=== PATIENT | female | born 1955 | race Caucasian/White ===

== ENCOUNTER 2017-03-27 11:27 | Emergency (ER) | payer MEDICAID ==
[~2017-03-27] VITALS: Ht 152.4 cm; Wt 77.3 kg
[~2017-03-27 11:27] MED LIST: ALBU8.5H8 IH; ASPI-556 PO; ATOR40TA28 PO; BUME2TAB18 PO; CARV12 PO; FERR-89 PO; HUM10VIA SQ; HYDR100T28 PO; ISOS60TA4 PO; NITR0.4T SL; PARO20TA24 PO; PRED10TA3 PO; VITAD1000 PO
[2017-03-27 12:04] LABS: GLUCOSE COMMENT 1 Doctor Notified; GLUCOSE,POINT OF CARE 404 MG/DL (70-110)
[2017-03-27 12:21] LABS: CALCIUM, TOTAL 8.5 mg/dL (8.8-10.5); CREATININE 4.94 mg/dL (0.60-1.30); POTASSIUM 3.6 mmol/L (3.5-5.1)
[2017-03-27 12:29] LABS: TOTAL PROTEIN, SERUM 6.9 g/dL (6.4-8.2)
[2017-03-27 12:33] LABS: BASOPHILS % (AUTO) 0.4 % (0.0-2.0); EOSINOPHILS % (AUTO) 0 % (1.0-6.0); HEMATOCRIT 33.4 % (36-46); HEMOGLOBIN 11.5 g/dL (12.0-16.0); LYMPHOCYTES # (AUTO) 0.6 K/uL (1.0-4.8); LYMPHOCYTES % (AUTO) 3.1 % (22.0-44.0); MEAN CORPUSCULAR HEMOGLOBIN 37.1 pg (26.0-34.0); MEAN CORPUSCULAR HGB CONC 34.5 G/dL (31.0-37.0); MEAN CORPUSCULAR VOLUME 108 fL (80-100); MONOCYTES # (AUTO) 0.9 K/uL (0.1-1.0); MONOCYTES % (AUTO) 4.9 % (2.0-9.0); NEUTROPHILS # (AUTO) 17.3 K/uL (1.8-7.7); NEUTROPHILS % (AUTO) 91.6 % (40.0-70.0); PLATELET COUNT (AUTO) 180 K/uL (150-450); RED CELL DISTRIBUTION WIDTH 13.8 % (11.5-14.5); WHITE BLOOD COUNT (AUTO) 18.9 K/uL (4.5-11.0)
[2017-03-27] MEDS ORDERED: INSULIN REGULAR, HUMAN 100 UNITS/ML IVP ONE (12:45)
[2017-03-27] MEDS ORDERED: DiphenhydrAMINE HCL 50 MG/ML VIAL IVP ONE (12:45)
[2017-03-27] MEDS ORDERED: SODIUM CHLORIDE 0.9% 1,000 ML IV ONE (12:45)
[2017-03-27] MEDS ORDERED: PROCHLORPERAZINE EDISYLATE 5 MG/ML 2 ML VIAL IVP ONE (12:45)
[2017-03-27 14:27] LABS: GLUCOSE,POINT OF CARE 298 MG/DL (70-110)
[2017-03-27 15:51] VITALS: BP 122/73
== END 2017-03-27 16:05 | disposition home or self-care (01) ==
LOC: EMS 11:27
DX: J32.0 Chronic maxillary sinusitis (principal); R42 Dizziness and giddiness; R11.10 Vomiting, unspecified; I13.2 Hypertensive heart and chronic kidney disease with heart failure and with stage 5 chronic kidney disease, or end stage renal disease; E11.22 Type 2 diabetes mellitus with diabetic chronic kidney disease; N18.6 End stage renal disease; I50.9 Heart failure, unspecified; K21.9 Gastro-esophageal reflux disease without esophagitis; E78.00 Pure hypercholesterolemia, unspecified; Z99.2 Dependence on renal dialysis; Z79.4 Long term (current) use of insulin; Z98.62 Peripheral vascular angioplasty status
CPT/HCPCS: 36415; 70450; 80053; 82948; 82962; 83690; 84484; 85025; 93005; 96361; 96374; 96375; 99285; J0780; J1200; J1815; J7030